=== PATIENT | male | born 1990 | race Hispanic/Latino ===

== ENCOUNTER 2020-01-01 14:05 | Emergency (ER) | payer SELFPAY ==
[~2020-01-01] VITALS: Ht 185.4 cm; Wt 113.4 kg
--- OUTSIDE RECORDS SUMMARY | 2020-01-01 14:08 | XMS REPORT ---
[facility] Address Unknown Phone Unavailable Care Team Providers Care Press Machine Feeder Name Role Phone Unavailable Unavailable Payers Payer Name Policy Type Policy Number Effective Date Expiration Date Problems This patient has no known problems. Allergies, Adverse Reactions, Alerts Allergy Name Allergy Type Status Severity Reaction(s) Onset Date Inactive Date Treating Clinician Comments No Known Allergies DA Active U 2019-12-06 00:00:00 No Known Allergies DA Active U 2018-09-03 00:00:00 No Known Allergies DA Active U 2017-01-11 00:00:00 Medications This patient has no known medications. Encounters Start Date/Time End Date/Time Encounter Type Admission Type Attending [facility] Care Facility Care Department Encounter ID 2019-11-25 08:36:00 2019-11-25 08:36:00 Emergency E [facility] [id number] Results Test Description Test Time Test Comments Text Results Atomic Results Result Comments GLUBED 2019-12-08 11:19:00 GLUBED (test code=GLUBED) 334 MG/DL 70-105 [id number] 06:02:00* Test Item Value Reference Range Comments GLUBED (test code=GLUBED) 246 MG/DL 70-105 BASIC METABOLIC [id number] 05:14:00* Test Item Value Reference Range Comments SODIUM (test code=NA) 131 mmol/L 135-145 POTASSIUM (test code=K) 4.1 mmol/L 3.6-5.0 CHLORIDE (test code=CL) 105 mmol/L 101-111 CARBON DIOXIDE (test code=CO2) 21 mmol/L 21-31 GLUCOSE (test code=GLU) 266 mg/dl 70-100 BLOOD UREA NITROGEN (test code=BUN) 16 mg/dl 6-20 GLOMERULAR FILTRATION RATE (test code=GFR) >=60 max estimate >60 The estimated glomerular filtration rate is computed usingpatient race, age (>18), sex, and serum creatinine. If anyof the needed data elements are missing the Laboratory cannot compute an estimation of the glomerular filtration rate. CREATININE (test code=CREAT) 0.55 mg/dL 0.64-1.27 CALCIUM (test code=CA) 8.5 mg/dL 8.5-10.5 [id number] 20:01:00* Test Item Value Reference Range Comments GLUBED (test code=GLUBED) 273 MG/DL 70-105 [id number] 17:15:00* Test Item Value Reference Range Comments GLUBED (test code=GLUBED) 366 MG/DL 70-105 COMPREHENSIVE METABOLIC [id number] 15:00:00* Test Item Value Reference Range Comments SODIUM (test code=NA) 133 mmol/L 135-145 POTASSIUM (test code=K) 3.8 mmol/L 3.6-5.0 CHLORIDE (test code=CL) 102 mmol/L 101-111 CARBON DIOXIDE (test code=CO2) 23 mmol/L 21-31 GLUCOSE (test code=GLU) 261 mg/dl 70-100 BLOOD UREA NITROGEN (test code=BUN) 12 mg/dl 6-20 GLOMERULAR FILTRATION RATE (test code=GFR) >=60 max estimate >60 The estimated glomerular filtration rate is computed usingpatient race, age (>18), sex, and serum creatinine. If anyof the needed data elements are missing the Laboratory cannot compute an estimation of the glomerular filtration rate. CREATININE (test code=CREAT) 0.65 mg/dL 0.64-1.27 TOTAL PROTEIN (test code=PROT) 6.3 g/dL 6.7-8.2 ALBUMIN (test code=ALB) 3.3 g/dL 3.2-5.5 CALCIUM (test code=CA) 8.2 mg/dL 8.5-10.5 BILIRUBIN TOTAL (test code=BILT) 0.80 mg/dL 0.2-1.3 SGOT/AST (test code=AST) 21 U/L 10-42 SGPT/ALT (test code=ALT) 23 U/L 10-60 ALKALINE PHOSPHATASE (test code=ALKP) 56 U/L 42-121 VITAMIN [id number] 15:00:00* Test Item Value Reference Range Comments VITAMIN B12 (test code=VITB12) 326 pg/ml 180-914 THYROID STIMULATING [id number] 15:00:00* Test Item Value Reference Range Comments THYROID STIMULATING HORMONE (test code=TSH) 1.552 uIU/ml 0.450-5.330 - MRI L-SPINE W/O [id number] 13:06:00Patient Name: KEN NUNEZ Unit No: [id number] EXAMS: CPT: [id number] MRI L-SPINE W/O CONT [id number] MRI LUMBAR SPINE WITHOUT CONTRAST TECHNIQUE: Multisequence multiplanar MR imaging of the lumbar spine without contrast COMPARISON:None HISTORY: back pain FINDINGS: The lumbar alignment is maintained. There is disc desiccation at L4-L5. The bodies are normal in height. The bone marrow is normal. There is no fracture. The conus terminates at L1 and is normal. T12-L1: Unremarkable L1-L2: Unremarkable L2-3: Unremarkable L3-4: Mild facet disease without canal or foraminal narrowing L4-5: Small focal right paracentral zone disc extrusion causing mild anterior canal narrowing. Central zone annular tear. The neural foramina are patent. There is mild facet disease. L5-S1: Canal and foramina are patent IMPRESSION: 1. Small focal right paracentral zone disc extrusion at L4-L5 causes mild canal narrowing at that level at that level adjacent to traversing L5 nerve roots 2. Normal conus at 1306 Reported and signed by: Danay Penaloza MD CC: Fabiano Kaiser MD Technologist: Devon Jaimes Dt/Tm: 12/07/2019 (1306) by:[email or web address] Orig Print D/T: S: 12/07/2019 (7731) BATCH NO: N/A Name: KEN NUNEZ [facility] Phys: Fabiano Richards MD [address] [place] : 1990 Age: 29 Sex: M [place], [place] [address] Loc: N.[id number] 1 Exam Date: 12/07/2019 Status: ADM IN PH: FAX: PAGE 1 Signed Report DRUGS OF ABUSE SCREEN [id number] 11:51:00* Test Item Value Reference Range Comments UR COCAINE (test code=COCAU) POSITIVE NEGATIVE This is a toxicology qualitative screening test only. Ifconfirmatory testing is desired please request drug screenconfirmation. These results are unconfirmed and should beused only for medical purposes. Cut-off concentration for Cocaine is 300 ng/mLRecommended screening cut-off concentrations by theUn[facility] Abuse and Mental Health Services Administration. UR CANABINOIDS (test code=CANU) POSITIVE NEGATIVE This is a toxicology qualitative screening test only. Ifconfirmatory testing is desired please request drug screenconfirmation. These results are unconfirmed and should beused only for medical purposes. Cut-off concentration for THC is 50 ng/mLRecommended screening cut-off concentrations by thebstance Abuse and Mental Health Services Administration. UR AMPHETAMINE (test code=AMPHU) NEGATIVE NEGATIVE The ingestion of natural herbal and plant productscontaining Ephedra/Ephedra-Metabolites can produce in urineone or more substances capable of cross-reacting withAmphetamine/Methamphetamine immunoassays. This testprovides a preliminary result only. A more specificalternative chemical method must be used to obtain aconfirmed analytical result. This is a toxicology qualitative screening test only. Ifconfirmatory testing is desired please request drug screenconfirmation. These results are unconfirmed and should beused only for medical purposes. Cut- off concentration for Amphetamines is 1000 ng/mLRecommended screening cut-off concentrations by thebstance Abuse and Mental Health Services Administration. UR BARBITURATE (test code=BARBQLU) NEGATIVE NEGATIVE This is a toxicology qualitative screening test only. Ifconfirmatory testing is desired please request drug screenconfirmation. These results are unconfirmed and should beused only for medical purposes. Cut-off concentration for Barbiturates is 200 ng/mLRecommended screening cut-off concentrations by thebstance Abuse and Mental Health Services Administration. UR BENZODIAZEPINE (test code=BENZU) NEGATIVE NEGATIVE This is a toxicology qualitative screening test only. Ifconfirmatory testing is desired please request drug screenconfirmation. These results are unconfirmed and should beused only for medical purposes. Cut-off concentration for Benzodiazepines is 200 ng/mLRecommended screening cut-off concentrations by the[facility] Abuse and Mental Health Services Administration. UR OPIATES QUAL (test code=OPIAQLU) POSITIVE NEGATIVE This is a toxicology qualitative screening test only. Ifconfirmatory testing is desired please request drug screenconfirmation. These results are unconfirmed and should beused only for medical purposes. Cut-off concentration for Opiates is 300 ng/mLRecommended screening cut-off concentrations by the[facility] Abuse and Mental Health Services Administration. UR PHENCYCLIDINE (PCP) (test code=PHENCU) NEGATIVE NEGATIVE This is a toxicology qualitative screening test only. Ifconfirmatory testing is desired please request drug screenconfirmation. These results are unconfirmed and should beused only for medical purposes. Cut-off concentration for PCP is 25 ng/mLRecommended screening cut-off concentrations by theLos [facility] Centerce Abuse and Mental Health Services Administration. [id number] 11:36:00* Test Item Value Reference Range Comments GLUBED (test code=GLUBED) 291 MG/DL 70-105 HGBA1C - GLYCOSYLATED [id number] 11:28:00* Test Item Value Reference Range Comments GLYCOSYLATED HEMOGLOBIN (HA1C) (test code=GLYHGB) 10.7 % 4.0-6.0 Interpretive Data: Caution should be exercised when interpreting the HgbA1c in patients with hemolytic anemia, iron deficiency and when the total hemoglobin is < 9g/dL, due to a decrease in average age of red blood cells COMPREHENSIVE METABOLIC [id number] 01:55:00* Test Item Value Reference Range Comments SODIUM (test code=NA) 133 mmol/L 135-145 POTASSIUM (test code=K) 3.8 mmol/L 3.6-5.0 CHLORIDE (test code=CL) 102 mmol/L 101-111 CARBON DIOXIDE (test code=CO2) 23 mmol/L 21-31 GLUCOSE (test code=GLU) 261 mg/dl 70-100 BLOOD UREA NITROGEN (test code=BUN) 12 mg/dl 6-20 GLOMERULAR FILTRATION RATE (test code=GFR) >=60 max estimate >60 The estimated glomerular filtration rate is computed usingpatient race, age (>18), sex, and serum creatinine. If anyof the needed data elements are missing the Laboratory cannot compute an estimation of the glomerular filtration rate. CREATININE (test code=CREAT) 0.65 mg/dL 0.64-1.27 TOTAL PROTEIN (test code=PROT) 6.3 g/dL 6.7-8.2 ALBUMIN (test code=ALB) 3.3 g/dL 3.2-5.5 CALCIUM (test code=CA) 8.2 mg/dL 8.5-10.5 BILIRUBIN TOTAL (test code=BILT) 0.80 mg/dL 0.2-1.3 SGOT/AST (test code=AST) 21 U/L 10-42 SGPT/ALT (test code=ALT) 23 U/L 10-60 ALKALINE PHOSPHATASE (test code=ALKP) 56 U/L 42-121 VITAMIN [id number] 01:55:00* Test Item Value Reference Range Comments VITAMIN B12 (test code=VITB12) pg/ml 180-914 THYROID STIMULATING [id number] 01:55:00* Test Item Value Reference Range Comments THYROID STIMULATING HORMONE (test code=TSH) 1.552 uIU/ml 0.450-5.330 COMPREHENSIVE METABOLIC [id number] 01:37:00* Test Item Value Reference Range Comments SODIUM (test code=NA) 133 mmol/L 135-145 POTASSIUM (test code=K) 3.8 mmol/L 3.6-5.0 CHLORIDE (test code=CL) 102 mmol/L 101-111 CARBON DIOXIDE (test code=CO2) 23 mmol/L 21-31 GLUCOSE (test code=GLU) 261 mg/dl 70-100 BLOOD UREA NITROGEN (test code=BUN) 12 mg/dl 6-20 GLOMERULAR FILTRATION RATE (test code=GFR) >=60 max estimate >60 The estimated glomerular filtration rate is computed usingpatient race, age (>18), sex, and serum creatinine. If anyof the needed data elements are missing the Laboratory cannot compute an estimation of the glomerular filtration rate. CREATININE (test code=CREAT) 0.65 mg/dL 0.64-1.27 TOTAL PROTEIN (test code=PROT) 6.3 g/dL 6.7-8.2 ALBUMIN (test code=ALB) 3.3 g/dL 3.2-5.5 CALCIUM (test code=CA) 8.2 mg/dL 8.5-10.5 BILIRUBIN TOTAL (test code=BILT) 0.80 mg/dL 0.2-1.3 SGOT/AST (test code=AST) 21 U/L 10-42 SGPT/ALT (test code=ALT) 23 U/L 10-60 ALKALINE PHOSPHATASE (test code=ALKP) 56 U/L 42-121 VITAMIN [id number] 01:37:00* Test Item Value Reference Range Comments VITAMIN B12 (test code=VITB12) pg/ml 180-914 THYROID STIMULATING [id number] 01:37:00* Test Item Value Reference Range Comments THYROID STIMULATING HORMONE (test code=TSH) uIU/ml 0.450-5.330 CBC W/AUTO [id number] 01:28:00* Test Item Value Reference Range Comments WHITE BLOOD CELL (test code=WBC) 7.5 x10 3/uL 3.2-11.5 RED BLOOD CELL (test code=RBC) 4.91 x10(6)/m 4.20-5.70 HEMOGLOBIN (test code=HGB) 14.1 g/dL 12.9-17.3 HEMATOCRIT (test code=HCT) 42.8 % 38.7-51.0 MEAN CELL VOLUME (test code=MCV) 87 fL 80-100 MEAN CELL HGB (test code=MCH) 28.7 pg 26.7-33.3 MEAN CELL HGB CONCENTRATION (test code=MCHC) 32.9 g/dL 30.0-34.0 RED CELL DISTRIBUTION WIDTH (test code=RDW) 11.4 % 11.3-14.5 PLATELET COUNT (test code=PLT) 242 x10 3/uL 130-408 MEAN PLATELET VOLUME (test code=MPV) 10.2 fL 8.6-12.6 NEUTROPHIL % (test code=NT%) 44.9 % 40.0-70.0 IMMATURE GRANULOCYTE % (test code=IG%) 0.7 % 0.0-2.0 LYMPHOCYTE % (test code=LY%) 44.1 % 20-40 MONOCYTE % (test code=MO%) 6.9 % 1-10 EOSINOPHIL % (test code=EO%) 2.9 % 0.0-5.0 BASOPHIL % (test code=BA%) 0.5 % 0.0-1.0 NUCLEATED RBC % (test code=NRBC%) 0.0 % 0.0-0.9 NEUTROPHIL # (test code=NT#) 3.4 x10 3/uL 1.6-7.2 LYMPHOCYTE # (test code=LY#) 3.32 x10 3/uL 1.1-2.7 MONOCYTE # (test code=MO#) 0.5 x10 3/uL 0.3-0.8 EOSINOPHIL # (test code=EO#) 0.2 x10 3/uL 0.0-0.5 BASOPHIL # (test code=BA#) 0.0 x10 3/uL 0.0-0.1
[2020-01-01] MEDS ORDERED: DEXAMETHASONE SOD PHOS 10 MG/1 ML VIAL IM ONE (15:00)
[2020-01-01] MEDS ORDERED: CYCLOBENZAPRINE HCL 10 MG TAB PO ONE (15:00)
[2020-01-01] MEDS ORDERED: KETOROLAC TROMETHAMINE 30 MG/ML VIAL IM ONE (15:00)
[2020-01-01] MEDS ORDERED: HYDROCODONE/APAP 10MG-325MG TAB PO ONE (15:00)
[2020-01-01 16:24] VITALS: BP 142/99
== END 2020-01-01 16:25 | disposition home or self-care (01) ==
LOC: ER 14:05
DX: M54.41 Lumbago with sciatica, right side (principal)
CPT/HCPCS: 99283; J1100; J1885

== ENCOUNTER 2020-02-06 08:43 | Emergency (ER) | payer OTHER ==
[~2020-02-06] VITALS: Ht 185.4 cm; Wt 113.4 kg
--- OUTSIDE RECORDS SUMMARY | 2020-02-06 08:46 | XMS REPORT | Summary of Care ---
Author Author [facility] Organization [facility] Address Unknown Phone Unavailable Care Team Providers Care Client Services Manager Name Role Phone Clinic, [facility] PCP [phone] Reason for Visit * Reason Comments Back Pain * Consult, Test & Treat (Routine) Referred By Contact Referred To Contact Status Reason Specialty Diagnoses / Procedures Bianca Light MD Mandeep Haley Jr., MD [address] [address] Authorization Consult, Test, and Physical Diagnoses Not Needed Treat Medicine and Lumbar back merle n Rehab with radiculopathy affecting left lower extremity P rocedures ID OFFICE OUTPATIENT NEW 45 MINUTES Encounter Details Care Team Description Date Type Department Mandeep Haley Jr., MD [address] [id number] Back Pain 01/19/2020 Office Visit [facility] [address] [place] [address] [address] Floor, [place] [address] Allergies No Known Allergiesdocumented as of this encounter (statuses as of 01/19/2020) Medications End Date Status Medication Sig Dispensed Refills Start Date Active ibuprofen (MOTRIN) 800 mg TAKE 1 TABLET 0 / tablet BY MOUTH 0 EVERY 8 HOURS NEEDED FOR PAIN Active metformin (GLUCOPHAGE) TAKE 1 TABLET 0 12/04/ 02 1000 MG tablet BY MOUTH 2 0 TIMES DAILY (WITH MEALS) FOR 90 DAYS. Active meloxicam (MOBIC) 15 MG TAKE 1 TABLET 0 tablet BY MOUTH 0 EVERY DAY Active glipiZIDE (GLUCOTROL) 5 TAKE 1 TABLET 0 MG tablet BY MOUTH 0 TWICE A DAY BEFORE MEALS Active hydrocodone-acetaminophen Take 1 Tab by 40 Tab 0 (NORCO) 5-325 mg tablet mouth every 6 0 hours as needed. Active gabapentin (NEURONTIN) Take 1 Cap by 30 Cap 0 0 300 MG capsule mouth at 0 bedtime. documented as of this encounter (statuses as of 01/19/2020) Active Problems No known active problemsdocumented as of this encounter (statuses as of 01/19/2020) Social History Date Tobacco Use Types Packs/Day Years Used Never Smoker Smokeless Tobacco: Never Used Drinks/Week oz/Week Comments Alcohol Use Never Alcohol Habits Answer Date Recorded How often do you have a drink containing alcohol? Never 01/19/2020 How many drinks containing alcohol do you have on No t asked a typical day when you are drinking? How often do you have six or more drinks on one Not asked occasion? Sex Assigned at Date Recorded Not on file Industry Job Start Date Occupation Not on file Not on file Not on file Travel End Travel History Travel Start No recent travel history available. documented as of this encounter Last Filed Vital Signs Reading Time Taken Comments Vital Sign 144/85 01/19/2020 10:02 AM CDT Blood Pressure 101 01/19/2020 10:02 AM CDT Pulse 36.2 C (97.2 F) 01/19/2020 10:02 AM CDT Temperature - - Respiratory Rate - - Oxygen Saturation - - Inhaled Oxygen Concentration 113.4 kg (250 lb) 01/19/2020 10:01 AM CDT Weight 185.4 cm (6' 1") 01/19/2020 10:01 AM CDT Height 32.98 01/19/2020 10:01 AM CDT Body Mass Index documented in this encounter Patient Instructions * Patient Instructions* Mandeep Haley Jr., MD - 01/19/2020 10:00 AM CDT -Use of opiate medications for therapeutic purposes 1) Continue current medications. 2) Take medications as prescribed. 3) Do not share or sell your medications. Do not take medications not prescribed to you. 4) Call if you have any intolerable medication side effects. 5) Try and get daily exercise including walking. 6) Call if symptoms worsen. 7) If you feel out of control with the use of your medication or if you experie nce a change in behavior, you may be showing signs of addiction. Please contact our office if you have any worries or believe that you need help with addiction or substance abuse. 8) Lost or stolen prescriptions and/or medications will not be refilled early. 9) Cognitive Side effects of opiate medications include: Fatigue Dizziness Clouded mentation Decreased ability to concentrate Slowed motor performance Slowed reflexes Increased response time to stimuli Impaired coordination Use caution regarding these side effects and if any are present do not drive o r operate heavy machinery. 10) The danger of mixing opiate medications with other sedating drugs like soma, benzodiazepines, sleep medications, alcohol and other opiates can lead to overs edation and accidental overdose. Do not mix medications. 11) Do not use any illegal substances. Constipation- Constipation is a common side effect of opiate medications. Opiates slow bowel motility. IF Constipation occurs, push fluids, use senna or senna with colace daily as di rected. Maintain a high fiber diet with plenty of roughage, and 6-8 large glasse s of water daily to avoid constipation in the future. Timing elimination to occu r after meals, or after a hot drink, can also improve the situation nursing home. Call if symptoms do not improve, please call our office documented in this encounter Progress Notes * Mandeep Haley Jr., MD - 01/19/2020 10:00 AM CDT Chief Complaint Patient presents with Back Pain Avtar Melara is a 29 y.o. male is here today for evaluation of low back pain. Symptoms have been present for 2 months worse pain (problems off and on for year s but never in his legs) Initial inciting event:no known injury Pain Location:lower back radiating to both legs Pain severity: pain is perceived as severe (6-8 pain scale) Exacerbating factors: standing and walking Associated symptoms/Red flags: weakness, numbness, tingling, leg pain, The roxana ent denies F/C or unexplained weightloss. They have no bowel or bladder complain ts. Previous workup: MRI of the lumbar spine 12-07-2019 no report available Images reviewed and HIT at L45 with right paracentral disc protrusion Previous treatments: tylenol #3 tramadol mobic, motrin, Going to PT and doing hi s stretches (help some) Past Medical History: Diagnosis Date Diabetes mellitus (HCCode) No past surgical history on file. Outpatient Medications Prior to Visit Medication Sig Dispense Refill glipiZIDE TAKE 1 TABLET BY MOUTH TWICE A DAY BEFORE MEALS ibuprofen TAKE 1 TABLET BY MOUTH EVERY 8 HOURS NEEDED FOR PAIN meloxicam TAKE 1 TABLET BY MOUTH EVERY DAY metformin TAKE 1 TABLET BY MOUTH 2 TIMES DAILY (WITH MEALS) FOR 90 DAYS. No facility-administered medications prior to visit. Social History Tobacco Use Smoking status: Never Smoker Smokeless tobacco: Never Used Substance Use Topics Alcohol use: Never Frequency: Never Drug use: Never Past Medical, Family, Social and Medication history was reviewed. The patient's pain diagram and questionnaire were reviewed. Review of Systems Constitutional: Negative for chills, fever and malaise/fatigue. Respiratory: Negative for shortness of breath. Cardiovascular: Negative for chest pain. Gastrointestinal: Negative for constipation. Genitourinary: Negative for urgency. Musculoskeletal: Positive for back pain and myalgias. Neurological: Positive for tingling and weakness. Negative for sensory change an d focal weakness. Psychiatric/Behavioral: Negative for depression. The patient has insomnia. The p atient is not nervous/anxious. All other systems reviewed and are negative. Physical Exam Blood pressure 144/85, pulse 101, temperature 97.2 F (36.2 C), height 6' 1" (1.854 m), weight 250 lb (113.4 kg). General appearance: oriented to person, place, and time and in mild to moderate distress. HEENT: normocephalic, atraumatic. Chest: no tachypnea, retractions or cyanosis. CVS exam: intact peripheral pulses lower extremities. Lower extremity edema: ab sent Abdominal exam: soft, nondistended. Skin exam - no rashes Neurological exam reveals alert, oriented, normal speech, no focal findings or movement disorder noted, DTR's normal and symmetric, motor and sensory grossly n ormal bilaterally. Lumbar spine exam: Gait: antalgic Tenderness: central, left paralumbar, right paralumbar ROM:limited flexion and extension CRYSTAL: Negative bilateral SLR: Positive bilateral Femoral neural tension testing: Negative bilateral After reviewing pertinent patient history and PE findings and correlating with a vailable imaging studies and past treatments my assessment and plan is as follow s: 1. Lumbar radiculopathy Acute lumbar radiculopathy @ L45 The current patient is limited in their functional abilities due to pain despite an appropriate trial of conservative care. BILATERAL lumbar transforaminal ANDREY under fluoroscopic guidance at L45 level(s) for both diagnostic and therapeutic purposes. We will do 1 injection follow up by pain diary over 1 to 2 weeks following the injections and decide future treat ment options based on patient reports of pain relief and changes in functional l evel. We discussed the risks (including paralysis and spinal fluid leak) and be nefits of the spinal injection 2. Herniated lumbar intervertebral disc The pathophysiology of the current diagnosis was discussed with the patient. Ot her possible causes were reviewed. Multiple treatment options were discussed. Al l of the patient's questions were answered. MRI images of the spine were reviewed with the patient. 3. Muscle pain, myofascial The pathophysiology of myofascial pain was discussed with the patient. Treatmen t options including medication, exercise, PT, medicare interviewer, relaxation, and injections were reviewed at length. The risks and benefits of trigger point, i ntra-articular steroid injections and spinal injections were discussed. Verbal instructions on spinal biomechanics and lifting techniques were given. Benefits of regular exercise and activity were also reviewed with him. Educational material distributed. Discussed appropriate exercises. Discussed appropriate use of ice and heat. -Use of opiate medications for therapeutic purposes 1) [place] 5mg prn (40) 2) Take medications as prescribed. 3) Do not share or sell your medications. Do not take medications not prescribed to you. 4) Call if you have any intolerable medication side effects. 5) Try and get daily exercise including walking. 6) Call if symptoms worsen. 7) If you feel out of control with the use of your medication or if you experie nce a change in behavior, you may be showing signs of addiction. Please contact our office if you have any worries or believe that you need help with addiction or substance abuse. 8) Lost or stolen prescriptions and/or medications will not be refilled early. 9) Cognitive Side effects of opiate medications include: Fatigue Dizziness Clouded mentation Decreased ability to concentrate Slowed motor performance Slowed reflexes Increased response time to stimuli Impaired coordination Use caution regarding these side effects and if any are present do not drive o r operate heavy machinery. 10) The danger of mixing opiate medications with other sedating drugs like soma, benzodiazepines, sleep medications, alcohol and other opiates can lead to overs edation and accidental overdose. Do not mix medications. 11) Do not use any illegal substances. Constipation- Constipation is a common side effect of opiate medications. Opiates slow bowel motility. IF Constipation occurs, push fluids, use senna or senna with colace daily as di rected. Maintain a high fiber diet with plenty of roughage, and 6-8 large glasse s of water daily to avoid constipation in the future. Timing elimination to occu r after meals, or after a hot drink, can also improve the situation supervisor intermediates. Call if symptoms do not improve, please call our office Mandeep Haley Jr., MD documented in this encounter Plan of Treatment Health Maintenance Due Date Last Done Comments TETANUS SHOT (ADULT) 2003 BMI FOLLOW UP PLAN 2006 HIV SCREENING 2006 FLU VACCINE > 6 MONTHS 05/05/2020 documented as of this encounter Results Not on filedocumented in this encounter Visit Diagnoses Diagnosis Lumbar radiculopathy - Primary Thoracic or lumbosacral neuritis or rad iculitis, unspecified Herniated lumbar intervertebral disc Displacement of lumbar intervertebral d isc without myelopathy Muscle pain, myofascial Mylagia and myositis, unspecified documented in this encounter Insurance Type Payer Benefit Subscriber ID Effective Phone Address Plan / Dates Group [facility] xxxxxxxxxx 2019-P [address] [place] [address] [facility] [id number] [place] [address] documented as of this encounter
--- NOTE | 2020-02-06 08:53 | NUR ---
US notified ETA [address] Fischer notified.
[2020-02-06] MEDS ORDERED: INSULIN REGULAR, HUMAN 100 UNIT/1 ML 3ML VIAL SQ ONE (09:00)
[2020-02-06] MEDS ORDERED: INSULIN REGULAR, HUMAN 100 UNIT/1 ML 3ML VIAL ONE (09:16)
--- NOTE | 2020-02-06 10:20 | NUR ---
DR SIERRA AWARE OF GLUCOSE READING OF 426, PT IS TO TAKE HIS MEDICATIONS AT HOME WHEN DISCHARGED, PT VERBALIZED UNDERSTANDING OF INSTRUCTIONS.
[2020-02-06 10:21] VITALS: BP 127/71
--- NOTE | 2020-02-06 10:21 | Diagnostic Imaging Report ---
Exam: Testicular ultrasound. Clinical History: Testicular pain Findings: Sonographic evaluation of the testicles. Both testes are normal in echogenicity and size without intratesticular mass. Normal symmetric blood flow and arterial and venous waveforms without evidence of torsion. Right: The right testicle measures 3.6 x 2.0 x 3.3 cm and appears unremarkable. The right epididymis measures 0.5 x 0.7 x 0.5 cm and appears unremarkable. Small right hydrocele. Small right varicocele. Left: The left testicle measures 3.9 x 2.4 x 3.3 cm and appears unremarkable. The left epididymis measures 0.9 x 1.0 x 0.6 cm and appears unremarkable. No hydrocele or varicocele. Impression: No testicular torsion or intratesticular mass. Small right hydrocele and right varicocele. Signed by: Clarisse Muñoz MD on 02/06/2020 10:17 AM
== END 2020-02-06 10:21 | disposition home or self-care (01) ==
LOC: FSED 08:43
DX: N50.811 Right testicular pain (principal); N45.1 Epididymitis; N43.1 Infected hydrocele; E11.9 Type 2 diabetes mellitus without complications
CPT/HCPCS: 76870; 81003; 82948; 99283; J1817